=== PATIENT | male | born 1970 | race Caucasian/White ===

== ENCOUNTER → 2019-10-27 | Outpatient (REF) | payer BC | LOC: M LAB REF 12:41 | PROVIDERS: ATTEND Physician Assistant Medical | DX: J03.90 Acute tonsillitis, unspecified (principal) ==

== ENCOUNTER 2019-11-05 12:50 | Inpatient (IN) | payer BC ==
[~2019-11-05] VITALS: Ht 170.2 cm; Wt 93.1 kg
[2019-11-05] MEDS ORDERED: PRAV40TA2 PO (12:59)
[2019-11-05] MEDS ORDERED: AMOX875T2 PO (12:59)
[2019-11-05] MEDS ORDERED: LISI-538 PO (12:59)
[2019-11-05 14:07] LABS: HEMATOCRIT 44.1 % (42.0-52.0); HEMOGLOBIN 14.3 g/dl (13.5-17.5); MEAN CORPUSCULAR HEMOGLOBIN 29.3 pg (27.0-33.0); MEAN CORPUSCULAR HGB CONC 32.4 g/dl (32.0-36.5); MEAN CORPUSCULAR VOLUME 90.4 fl (80.0-96.0); PLATELET COUNT, AUTOMATED 219 10^3/uL (150-450); RED BLOOD COUNT 4.88 10^6/uL (4.30-6.10)
[2019-11-05 14:13] LABS: WHITE BLOOD COUNT 13.5 10^3/uL (4.0-10.0)
[2019-11-05] MEDS ORDERED: NS 1,000 ML IV ONE (14:15)
[2019-11-05] MEDS ORDERED: KETOROLAC 30 MG/ML VIAL (J1885) IV ONE (14:15)
[2019-11-05 14:22] LABS: INR 1.01
[2019-11-05 14:23] LABS: PARTIAL THROMBOPLASTIN TIME 33.8 SECONDS (25.0-38.4)
[2019-11-05 14:31] LABS: ATYPICAL LYMPH 6 % (0-5); BASOPHILS 2 % (0-1); LYMPHOCYTES 74 % (16-44); NEUTROPHILS 18 % (28-66); PLATELET ESTIMATE NORMAL (NORMAL)
[2019-11-05 14:38] LABS: ALBUMIN 3.6 GM/DL (3.2-5.2); ALT/SGPT 357 U/L (12-78); AMYLASE 73 U/L (25-115); BILIRUBIN,DIRECT 0.5 MG/DL (0.0-0.2); BILIRUBIN,TOTAL 0.8 MG/DL (0.2-1.0); BLOOD UREA NITROGEN 15 MG/DL (7-18); C REACTIVE PROTEIN QUANTITATIV 0.72 MG/DL (0.00-0.30); CALCIUM LEVEL 9.2 MG/DL (8.5-10.1); CARBON DIOXIDE LEVEL 29 MEQ/L (21-32); CHLORIDE LEVEL 100 MEQ/L (98-107); GLOMERULAR FILTRATION RATE > 60.0 (>60); GLUCOSE, FASTING 207 MG/DL (70-100); POTASSIUM SERUM 4.2 MEQ/L (3.5-5.1); SODIUM LEVEL 134 MEQ/L (136-145); TOTAL PROTEIN 7.7 GM/DL (6.4-8.2)
[2019-11-05 14:41] LABS: MONO REFLEX EBV COMP POSITIVE (NEGATIVE)
[2019-11-05] MEDS ORDERED: ISOVUE-370 76% 100ML VIAL (Q9967) As Ordered ONE (14:41)
[2019-11-05 14:54] LABS: ERYTHROCYTE SEDIMENTATION RATE 37 mm/hr (0-15)
--- NOTE | 2019-11-05 15:18 | REPVR ---
PROCEDURE INFORMATION: Exam: CT Neck With Contrast Exam date and time: 11/05/2019 2:45 PM Age: 49 years old Clinical indication: Mass, lump, or swelling in neck; Additional info: Eval for deep tissue abscess TECHNIQUE: Imaging protocol: Computed tomography images of the neck with intravenous contrast. Radiation optimization: All CT scans at this facility use at least one of these dose optimization techniques: automated exposure control; mA and/or kV adjustment per patient size (includes targeted exams where dose is matched to clinical indication); or iterative reconstruction. Contrast material: ISOVUE 370; Contrast volume: 75 ml; Contrast route: IV; COMPARISON: No relevant prior studies available. FINDINGS: Nasopharynx: Unremarkable. Oropharynx: There is moderate prominence of the tonsillar tissues in the lateral silva of the oropharynx associated with multiple small calcifications consistent with tonsilloliths.There is no evidence of focal fluid collections to suggest abscess formation. Hypopharynx: Unremarkable. Larynx: Unremarkable. Normal epiglottis. Retropharyngeal space: Unremarkable. Submandibular/Parotid glands: Normal. Glands are normal in size. Thyroid: Normal. No enlarged or calcified nodules. Lymph nodes: There are multiple enlarged level I and level II and jugular chain lymph nodes in the neck bilaterally, most likely reactive in etiology. Trachea: Visualized trachea is unremarkable. Lungs: Unremarkable as visualized. Bones/joints: Unremarkable. No acute fracture. Soft tissues: Unremarkable. No significant soft tissue swelling. IMPRESSION: 1. There is moderate prominence of the tonsillar tissues in the lateral silva of the oropharynx associated with multiple small calcifications consistent with tonsilloliths.There is no evidence of focal fluid collections to suggest abscess formation. 2. There are multiple enlarged level I and level II and jugular chain lymph nodes in the neck bilaterally, most likely reactive in etiology. Electronically signed by: Sandoval Fall On 11/05/2019 15:18:16 PM
[2019-11-05 15:22] LABS: AMORPHOUS SEDIMENT LARGE (NEGATIVE); APPEARANCE, URINE CLOUDY (CLEAR); BACTERIA, URINE AUTO 1+ (NEGATIVE); BILIRUBIN, URINE AUTO NEGATIVE (NEGATIVE); BLOOD, URINE BLOOD NEGATIVE (NEGATIVE); COLOR, URINE YELLOW (YELLOW); GLUCOSE, URINE (UA) AUTO 2+ mg/dL (NEGATIVE); KETONE, URINE AUTO NEGATIVE (NEGATIVE); LEUKOCYTE ESTERASE, URINE AUTO NEGATIVE (NEGATIVE); MUCUS, URINE SMALL (NEGATIVE); NITRITE, URINE AUTO NEGATIVE (NEGATIVE); PROTEIN, URINE AUTO NEGATIVE (NEGATIVE); RBC, URINE AUTO 1 /HPF (0-3); SPECIFIC GRAVITY URINE AUTO 1.036 (1.002-1.035); SQUAMOUS EPITHELIAL CELL UR AU 0 /HPF (0-6); UROBILINOGEN, URINE AUTO 0.2 mg/dL (0.0-2.0); WBC, URINE AUTO 0 /HPF (0-3)
[2019-11-05] MEDS ORDERED: AMLO5TAB6 PO (16:38)
[2019-11-05] MEDS ORDERED: FLUO20CA20 PO (16:38)
[2019-11-05] MEDS ORDERED: ACETAMINOPHEN TAB 650MG DOSE (2X325MG) PO PRN (16:45)
--- NOTE | 2019-11-05 16:57 | HPEPDOC ---
[facility] Medical History & Physical Date of Admission Nov 05, 2019 Date of Service: Nov 05, 2019 Attending Physician: BOGDAN TELLEZ MD History and Physical CHIEF COMPLAINT: Sent from ENTs office for tonsillitis requiring IV antibiotics HISTORY OF PRESENT ILLNESS: 49-year-old male with past medical history of hypertension and hyperlipidemia presents from ENTs office for IV antibiotics. Patient has been dealing with tonsillitis for the past 3 weeks, treated with 10 days of Augmentin, which he completed today. He went to see his PCP earlier today who referred him to ENT, who then sent the patient to ER for IV antibiotics as there was no improvement with Augmentin. Patient reports experiencing sore throat along with mild fatigue, no other symptoms. He denies any shortness of breath, chest pain, nausea, vomiting, abdominal pain or diarrhea. 10 point review of system is negative except for above PAST MEDICAL HISTORY: 1. Hypertension. 2. Hyperlipidemia. PAST SURGICAL HISTORY: 1. None. SOCIAL HISTORY: Never smoker. Social alcohol use denies drug use FAMILY HISTORY: Positive for hypertension ALLERGIES: Please see below. HOME MEDICATIONS: Please see below. PHYSICAL EXAMINATION: VITAL SIGNS: Please see below. GENERAL: No distress HEENT: Normocephalic, atraumatic, moist mucous membranes, bilateral enlarged tonsils with pustular drainage noted, unable to visualize the pharynx NECK: Supple CARDIOVASCULAR EXAMINATION: S1, S2, no murmurs RESPIRATORY EXAMINATION: Clear to auscultation, no wheezing ABDOMINAL EXAMINATION: Soft, nontender, nondistended, positive bowel sounds EXTREMITIES: Range of motion intact SKIN: No rash NEUROLOGICAL EXAMINATION: Alert and oriented 3, no focal deficits PSYCHIATRIC EXAMINATION: Calm and cooperative LABORATORY DATA: See below. IMAGING: CT showing lymphadenopathy and swollen tonsils, no abscess noted. MICROBIOLOGY: Please see below. ASSESSMENT: 49-year-old male with past medical history of hypertension and hyperlipidemia who has failed outpatient treatment for tonsillitis meeting admitted for IV antibiotics and further workup. PLAN: 1. Tonsillitis. Pustular drainage and swelling noted bilaterally, treated with 10 days of Augmentin, no improvement, labs showing lymphocytosis, atypical lymphocytes, elevated LFTs and positive mono screen. Findings are concerning for mononucleosis, EBV/CMV serologies ordered, empiric Zosyn, IV hydration, supportive care. 2. Hypertension. Continue Norvasc and lisinopril 3. Hyperlipidemia. Continue pravastatin DVT prophylaxis: TEDs . GI prophylaxis: Not needed Vital Signs Vital Signs Date Time Temp Pulse Resp B/P (MAP) Pulse Ox O2 Delivery O2 Flow Rate FiO2 11/05/19 15:11 98.3 91 18 136/71 (92) 99 Room Air Laboratory Data Labs 24H Laboratory Tests 2 11/05/19 13:39: Neutrophils (%) (Auto) , Lymphocytes # (Auto) , Nucleated Red Blood Cells % (auto) 0.0, Neutrophils 18L, Lymphocytes (Manual) 74H, Basophils (Manual) 2H, Atypical Lymphocytes 6H, Red Blood Cell Morphology NORMAL, Platelet Estimate NORMAL, Erythrocyte Sedimentation Rate 37H, Prothrombin Time 13.0, Prothromb Time International Ratio 1.01, Activated Partial Thromboplast Time 33.8, Urine Color YELLOW, Urine Appearance CLOUDYH, Urine pH 5.0, Urine Specific Brule 1.036, Urine Protein NEGATIVE, Urine Glucose (Auto)(UA) 2+H, Urine Ketones (Auto) NEGATIVE, Urine Blood NEGATIVE, Urine Nitrite NEGATIVE, Urine Bilirubin NEGATIVE, Urine Urobilinogen 0.2, Urine Leukocyte Esterase (Auto) NEGATIVE, Urine WBC (Auto) 0, Urine RBC (Auto) 1, Urine Hyaline Casts (Auto) 0, Urine Bacteria (Auto) 1+H, Urine Squamous Epithelial Cells 0, Urine Amorphous Sediment (Auto) LARGEH, Urine Mucus (Auto) SMALL, Urine Sperm (Auto) , Anion Gap 5L, Glomerular Filtration Rate > 60.0, Lactic Acid Level 1.8, Calcium Level 9.2, Total Bilirubin 0.8, Direct Bilirubin 0.5H, Aspartate Amino Transf (AST/SGOT) 99H, Alanine Aminotransferase (ALT/SGPT) 357H, Alkaline Phosphatase 692H, C- Reactive Protein, Quantitative 0.72H, Total Protein 7.7, Albumin 3.6, Albumin/Globulin Ratio 0.88L, Amylase Level 73, Monoscreen POSITIVEA CBC/BMP Laboratory Tests 11/05/19 13:39 Microbiology Microbiology 11/05/19 Blood Culture, Received Pending 11/05/19 Urine Culture, Received Pending 11/05/19 Blood Culture, Received Pending Home Medications Scheduled Amlodipine Besylate (Amlodipine Besylate) 5 Mg Tablet, 5 MG PO DAILY Amoxicillin/Potassium Clav (Amox-Clav 875-125 mg Tablet) 1 Each Tablet, 1 TAB PO BID Fluoxetine Hcl (Fluoxetine HCl) 20 Mg Capsule, 20 MG PO DAILY Lisinopril (Lisinopril) 20 Mg Tablet, 20 MG PO DAILY Pravastatin Sodium (Pravastatin Sodium) 40 Mg Tablet, 40 MG PO DAILY Allergies Coded Allergies: No Known Allergies (Unverified , 11/05/19) A-FIB/CHADSVASC A-FIB History Current/History of A-Fib/PAF?: No BOGDAN TELLEZ MD Nov 05, 2019 16:57
[2019-11-05] MEDS: NS 1,000 ML IV SCH (18:00)
[2019-11-05] MEDS: PIPERACILLIN/TAZOBACTAM SOD 3.375 GM in D5W MINI-BAG PLUS 50 ML IV SCH (18:18)
[2019-11-05] MEDS ORDERED: ACETAMINOPHEN *IV* 1,000 MG in IV 1 EA IV PRN (19:15)
[2019-11-05 20:00] VITALS: BP 119/70
[2019-11-05] MEDS: KETOROLAC 30 MG/ML VIAL (J1885) IV PRN (21:24)
[2019-11-06] VITALS: BP 110/64
[2019-11-06] MEDS: PIPERACILLIN/TAZOBACTAM SOD 3.375 GM in D5W MINI-BAG PLUS 50 ML IV SCH ×4 (00:13→17:49)
[2019-11-06] MEDS: ACETAMINOPHEN 325 MG/10.15 ML UDC PO PRN ×2 (04:20→17:56)
[2019-11-06] MEDS: NS 1,000 ML IV SCH (05:47)
[2019-11-06 07:10] LABS: HEMATOCRIT 40.2 % (42.0-52.0); HEMOGLOBIN 12.9 g/dl (13.5-17.5); MEAN CORPUSCULAR HEMOGLOBIN 29.5 pg (27.0-33.0); MEAN CORPUSCULAR HGB CONC 32.1 g/dl (32.0-36.5); MEAN CORPUSCULAR VOLUME 91.8 fl (80.0-96.0); PLATELET COUNT, AUTOMATED 190 10^3/uL (150-450); RED BLOOD COUNT 4.38 10^6/uL (4.30-6.10); WHITE BLOOD COUNT 10.7 10^3/uL (4.0-10.0)
[2019-11-06 07:35] LABS: ALBUMIN 3.1 GM/DL (3.2-5.2); ALT/SGPT 292 U/L (12-78); BILIRUBIN,TOTAL 0.7 MG/DL (0.2-1.0); BLOOD UREA NITROGEN 14 MG/DL (7-18); CALCIUM LEVEL 8.5 MG/DL (8.5-10.1); CARBON DIOXIDE LEVEL 28 MEQ/L (21-32); CHLORIDE LEVEL 108 MEQ/L (98-107); CREATININE FOR GFR 1.13 MG/DL (0.70-1.30); GLOMERULAR FILTRATION RATE > 60.0 (>60); GLUCOSE, FASTING 117 MG/DL (70-100); MAGNESIUM LEVEL 2.7 MG/DL (1.8-2.4); POTASSIUM SERUM 4.4 MEQ/L (3.5-5.1); SODIUM LEVEL 140 MEQ/L (136-145)
[2019-11-06 08:00] VITALS: BP 124/73
[2019-11-06] MEDS: FLUoxetine 20 MG CAP PO SCH (08:27)
[2019-11-06] MEDS: lisinopriL 20 MG TAB PO SCH (08:27)
[2019-11-06] MEDS: PRAVASTATIN 20 MG TAB PO SCH (08:27)
[2019-11-06] MEDS: amLODIPine 5 MG TAB PO SCH (08:27)
[2019-11-06] MEDS: KETOROLAC 30 MG/ML VIAL (J1885) IV PRN (12:20)
--- NOTE | 2019-11-06 14:57 | IPNPDOC ---
Date Seen The patient was seen on 11/06/19. Progress Note SUBJECTIVE: 49-year-old male with past medical history of hypertension and hyperlipidemia presents from ENTs office for IV antibiotics. Patient has been dealing with tonsillitis for the past 3 weeks, treated with 10 days of Augmentin, which he completed today. He went to see his PCP earlier today who referred him to ENT, who then sent the patient to ER for IV antibiotics as there was no improvement with Augmentin. Patient reports experiencing sore throat along with mild fatigue, no other symptoms. He denies any shortness of breath, chest pain, nausea, vomiting, abdominal pain or diarrhea. 11/06/19 No acute events overnight, tolerating liquid diet, requesting regular food, no dyspnea or cough, without any complaints at this time. 10 point review of system is negative except for above PHYSICAL EXAMINATION: VITAL SIGNS: Please see below. GENERAL: No distress HEENT: Normocephalic, atraumatic, moist mucous membranes, bilateral enlarged tonsils with pustular drainage noted, unable to visualize the pharynx NECK: Supple CARDIOVASCULAR EXAMINATION: S1, S2, no murmurs RESPIRATORY EXAMINATION: Clear to auscultation, no wheezing ABDOMINAL EXAMINATION: Soft, nontender, nondistended, positive bowel sounds EXTREMITIES: Range of motion intact SKIN: No rash NEUROLOGICAL EXAMINATION: Alert and oriented 3, no focal deficits PSYCHIATRIC EXAMINATION: Calm and cooperative LABORATORY DATA: See below. MICROBIOLOGY: Please see below. ASSESSMENT: 49-year-old male with past medical history of hypertension and hyperlipidemia who has failed outpatient treatment for tonsillitis meeting admitted for IV antibiotics and further workup. PLAN: 1. ?Mononucleosis Pustular drainage and swelling noted in tonsils bilaterally, treated with 10 days of Augmentin, no improvement, labs showing lymphocytosis, atypical lymphocytes, elevated LFTs and positive mono screen. Findings are concerning for mononucleosis, EBV/CMV serologies pending, continue empiric Zosyn, supportive care, oral intake adequate, no concern for airway compromise, advance diet, IV fluids discontinued. 2. Hypertension. Continue Norvasc and lisinopril 3. Hyperlipidemia. Continue pravastatin DVT prophylaxis: TEDs . GI prophylaxis: Not needed VS, I&O, 24H, Fishbone Vital Signs/I&O Vital Signs Date Time Temp Pulse Resp B/P (MAP) Pulse Ox O2 Delivery O2 Flow Rate FiO2 11/06/19 08:27 124/73 11/06/19 08:00 97.2 71 18 99 Room Air I&O- Last 24 Hours up to 6 AM 11/06/19 06:00 Intake Total 2870 ml Output Total 1475 ml Balance 1395 ml Laboratory Data 24H LABS Laboratory Tests 2 11/05/19 18:54: 11/06/19 06:46: Nucleated Red Blood Cells % (auto) 0.0, Anion Gap 4L, Glomerular Filtration Rate > 60.0, Calcium Level 8.5, Magnesium Level 2.7H, Total Bilirubin 0.7, Aspartate Amino Transf (AST/SGOT) 86H, Alanine Aminotransferase (ALT/SGPT) 292H, Alkaline Phosphatase 601H, Total Protein 7.0, Albumin 3.1L, Albumin/Globulin Ratio 0.79L CBC/BMP Laboratory Tests 11/06/19 06:46 Microbiology Microbiology 11/05/19 Blood Culture - Preliminary, Resulted No growth after 24 hours . All specim... 11/05/19 Urine Culture - Final, Complete 11/05/19 Blood Culture - Preliminary, Resulted No growth after 24 hours . All specim... BOGDAN TELLEZ MD Nov 06, 2019 14:57
[2019-11-06 16:00] VITALS: BP 124/74
[2019-11-06 20:00] VITALS: BP 119/80
[2019-11-07] VITALS: BP 122/82
[2019-11-07] MEDS: PIPERACILLIN/TAZOBACTAM SOD 3.375 GM in D5W MINI-BAG PLUS 50 ML IV SCH ×2 (00:32→06:21)
[2019-11-07] MEDS: KETOROLAC 30 MG/ML VIAL (J1885) IV PRN (00:36)
[2019-11-07 08:00] VITALS: BP 124/72
[2019-11-07] MEDS: FLUoxetine 20 MG CAP PO SCH (09:06)
[2019-11-07] MEDS: PRAVASTATIN 20 MG TAB PO SCH (09:06)
[2019-11-07] MEDS: lisinopriL 20 MG TAB PO SCH (09:06)
[2019-11-07 09:07] VITALS: BP 124/72
[2019-11-07] MEDS: amLODIPine 5 MG TAB PO SCH (09:07)
--- NOTE | 2019-11-07 17:03 | DS.PDOC ---
Discharge Summary General Date of Admission Nov 05, 2019 at 16:45 Date of Discharge 11/07/19 Attending Physician: BOGDAN TELLEZ MD Discharge Summary PROCEDURES PERFORMED DURING STAY: None ADMITTING DIAGNOSES: 1. Infectious mononucleosis DISCHARGE DIAGNOSES: 1. Infectious mononucleosis COMPLICATIONS/CHIEF COMPLAINT: Acute Infective Tonsillitis Hld Htn. HISTORY OF PRESENT ILLNESS: 49 y.o male w/ PMH of HTN & HLD was initially admitted for Tonsilitis requiring IV antibiotics but work up and clinical presentation was concerning for Infectious mononucleosis. Monospot test was positive, EBV/CMV serologies are pending. Patient has had significant clinical improvement, tolerating a regular diet without difficulty, no dyspnea or cough at this time. Patient will discharged without any antibiotics and advised to follow up w/ PCP within the next 3 days to discuss results of EBV/CMV serologies. Patient is clinically and hemodynamically stable at this time and agrees with discharge plan. HOSPITAL COURSE: As above DISCHARGE MEDICATIONS: Please see below. ALLERGIES: Please see below. PHYSICAL EXAMINATION: VITAL SIGNS: Please see below. GENERAL: No distress HEENT: Normocephalic, atraumatic, moist mucous membranes, bilateral enlarged tonsils with pustular drainage noted, unable to visualize the pharynx NECK: Supple CARDIOVASCULAR EXAMINATION: S1, S2, no murmurs RESPIRATORY EXAMINATION: Clear to auscultation, no wheezing ABDOMINAL EXAMINATION: Soft, nontender, nondistended, positive bowel sounds EXTREMITIES: Range of motion intact SKIN: No rash NEUROLOGICAL EXAMINATION: Alert and oriented 3, no focal deficits PSYCHIATRIC EXAMINATION: Calm and cooperative LABORATORY DATA: Please see below. IMAGING: CT showing swollen tonsils, negative for associated abscess. PROGNOSIS: Fair ACTIVITY: As tolerated DIET: Cardiac DISCHARGE PLAN: F/u with PCP in 3-5 days DISPOSITION: 01 Home, Self-Care. DISCHARGE INSTRUCTIONS: 1. as above DISCHARGE CONDITION: Stable TIME SPENT ON DISCHARGE: Greater than 22 minutes. Vital Signs/I&Os Vital Signs Date Time Temp Pulse Resp B/P (MAP) Pulse Ox O2 Delivery O2 Flow Rate FiO2 11/07/19 09:07 72 124/72 11/07/19 08:00 98.2 18 98 Room Air I&O- Last 24 Hours up to 6 AM 11/07/19 06:00 Intake Total 3950 ml Output Total 3500 ml Balance 450 ml Microbiology Microbiology 11/05/19 Blood Culture - Preliminary, Resulted No Growth after 48 hours. All Specime... 11/05/19 Urine Culture - Final, Complete 11/05/19 Blood Culture - Preliminary, Resulted No Growth after 48 hours. All Specime... Discharge Medications Scheduled Amlodipine Besylate (Amlodipine Besylate) 5 Mg Tablet, 5 MG PO DAILY, (Reported) Fluoxetine Hcl (Fluoxetine HCl) 20 Mg Capsule, 20 MG PO DAILY, (Reported) Lisinopril (Lisinopril) 20 Mg Tablet, 20 MG PO DAILY, (Reported) Pravastatin Sodium (Pravastatin Sodium) 40 Mg Tablet, 40 MG PO DAILY, (Reported) Allergies Coded Allergies: No Known Allergies (Unverified , 11/05/19) BOGDAN TELLEZ MD Nov 07, 2019 17:03
[2019-11-08 10:01] LABS: HEPATITIS B SURFACE ANTIGEN NEGATIVE (NEGATIVE)
[2019-11-08 10:28] LABS: HEPATITIS B CORE ANTIBODY IGM NEGATIVE (NEGATIVE); HEPATITIS C VIRUS ABY INDEX < 0.0 INDEX (<0.8)
[2019-11-08 10:31] LABS: HEPATITIS A ANTIBODY IGM NEGATIVE (NEGATIVE)
== END 2019-11-07 11:10 | disposition home or self-care (01) | DRG 723 ==
LOC: M ED 12:50 → M ED INP 16:45 → ENRESERVTM 17:12 → ENRESERVDT 17:12 → M PED 17:50
PROVIDERS: ADMIT Internal Medicine; ATTEND Internal Medicine
DX: B27.99 Infectious mononucleosis, unspecified with other complication (principal); I10 Essential (primary) hypertension; J03.90 Acute tonsillitis, unspecified; E78.5 Hyperlipidemia, unspecified; Z79.899 Other long term (current) drug therapy